=== PATIENT | female | born 1975 | race Two or more races ===

== ENCOUNTER 2024-01-20 03:57 | Emergency (ER) | payer OTHER ==
[~2024-01-20] VITALS: Ht 172.7 cm; Wt 106.6 kg
[2024-01-20] MEDS ORDERED: 0.9 % SODIUM CHLORIDE 1,000 ML IV STA (05:07)
[2024-01-20] MEDS ORDERED: METHYLPREDNISOLONE SOD SUCC 125 MG VIAL IV STA (05:07)
[2024-01-20] MEDS ORDERED: EPINEPHRINE HCL/PF 1 MG/ML AMPUL SUBCUTANEO STA (05:08)
[2024-01-20] MEDS ORDERED: FAMOtidine 10 MG/ML (4ML VIAL) IV PUSH STA (05:08)
[2024-01-20] MEDS ORDERED: KETOROLAC TROMETHAMINE 30 MG VIAL IV STA (05:09)
[2024-01-20 06:25] LABS: HEMATOCRIT 36.3 % (36.0-45.00); HEMOGLOBIN 12.2 g/dL (12.0-15.00); MEAN CELL VOLUME 84.1 fL (80.00-100.00); MEAN CORPUSCULAR HEMOGLOBIN 28.2 pg (27.00-32.0); MEAN CORPUSCULAR HGB CONC 33.6 g/dl (32.0-36.0); PLATELET COUNT 359 K/uL (150-450); RED BLOOD COUNT 4.31 M/uL (4.00-6.00); RED CELL DISTRIBUTION WIDTH 14.4 % (11.5-14.5)
== END 2024-01-20 07:52 | disposition home or self-care (01) ==
LOC: ER 03:57
DX: R21 Rash and other nonspecific skin eruption (principal); R53.81 Other malaise; Z20.822 Contact with and (suspected) exposure to COVID-19

== ENCOUNTER 2024-04-05 06:52 | Outpatient (CLI) | payer OTHER | END 2024-04-05 06:54 | disposition home or self-care (01) | LOC: SONOGRAMA 06:52 | PROVIDERS: ATTEND Pathology Anatomic Pathology & Clinical Pathology | DX: D34 Benign neoplasm of thyroid gland (principal); E06.3 Autoimmune thyroiditis; E04.1 Nontoxic single thyroid nodule ==